=== PATIENT | male | born 1980 | race African-American/Black ===

== ENCOUNTER 2020-12-08 19:22 | Emergency (ER) | payer OTHER, MEDICAID, SELFPAY ==
--- NOTE | 2020-12-08 19:29 | ED.MALEGU ---
HPI - Male Genitourinary General Chief complaint: Urogenital-Male Stated complaint: uti Time Seen by Provider: 12/08/20 19:38 Source: patient and RN notes reviewed Mode of arrival: ambulatory Limitations: no limitations History of Present Illness HPI Narrative: 40-year-old male presents with concern for urine urgency and frequency. He denies dysuria, hematuria. Reports right flank pain. Denies nausea, vomiting, diarrhea, fever, body aches, chills, sweats. Denies abnormal penile discharge. Reports symptoms started 1 week ago. MD Complaint: dysuria Related Data Allergies Allergy/AdvReac Type Severity Reaction Status Date / Time No Known Allergies Allergy Verified 12/08/20 19:44 Review of Systems Review of Systems: CONSTITUTIONAL: Denies malaise, chills, sweats, or fever. CARDIOVASCULAR: Denies chest pain, palpitations, or edema. RESPIRATORY: Denies cough or dyspnea. GASTROINTESTINAL: Denies abdominal pain, nausea, vomiting, diarrhea, bloody, or mucous stools. GENITOURINARY: Denies dysuria or hematuria. Reports urine urgency and frequency. Denies penile discharge SKIN: Denies lesions, rash or itching. MUSCULOSKELETAL: Reports right flank pain. Denies myalgia. All systems reviewed & are unremarkable except as noted in HPI and below PMFSH Comments At time of signature, agree with nursing past medical, surgical, social and family history. There is no relevant family history pertinent to the presenting complaint Exam Narrative: GENERAL: Well-appearing, well-nourished, and in no acute distress. HEAD: Normocephalic. EYES: PERRLA, conjunctivae clear. NECK: Supple. No lymphadenopathy CHEST: Clear to auscultation. No respiratory distress. HEART: Regular rate and rhythm. ABDOMEN: Soft, nontender upon palpation, nondistended, normal active bowel sounds, no palpable or pulsatile masses, no guarding. No CVA tenderness SKIN: Warm, dry, no rash. NEURO: Alert and oriented x3. PSYCH: Normal mood and affect Course Course Emergency Course: Patient is aware of diagnosis, understands and agrees to treatment plan. Anticipatory guidance given. Patient agrees to follow-up as directed and is aware of reasons to seek care at the emergency department. Portions of this record may have been created with voice recognition software Vital Signs Vital signs: Reviewed. MDM - Male Genitourinary MDM Narrative Medical decision making narrative: Exam findings and UA show no acute concerns or changes; patient is non-toxic appearing and is in no distress. Patient is appropriate for outpatient treatment and follow-up. Differential Diagnosis Differential diagnosis: Likely urinary tract infection, urethritis, prostatitis and acute retention of urine Critical Care Time Critical Care Time Critical Care Time: No Discharge Plan Discharge Clinical Impression: Urinary tract infection Qualifiers: Urinary tract infection type: site unspecified Hematuria presence: with hematuria Qualified Code(s): N39.0 - Urinary tract infection, site not specified Patient Disposition: Home, Self-Care Condition: Stable Instructions: Antibiotic Form, Urinary Tract Infection in Men (ED) Additional Instructions: We will send a urine culture to the lab; if the culture identifies an organism that the prescribed antibiotic will not treat, you will receive a phone call from an urgent care staff member and an appropriate antibiotic will be prescribed. -Your symptoms should begin to improve within a day of starting antibiotics. But you should finish all the antibiotic pills you get. Otherwise your infection might come back. -Also recommend: increase water intake. Tylenol/ibuprofen as needed for pain or fever -Follow-up with your primary care provider for urine recheck or seek ER visit if condition worsens with high fever, nausea, vomiting and severe back pain. Your blood pressure was elevated above 120/80 today at [facility]. This puts you above the threshold for follow
--- NOTE | 2020-12-08 19:35 | PC.NURSE ---
in br to obtain ua spec.
[2020-12-08 19:36] VITALS: BP 150/95; PULSE 72; RESP 16; TEMP 36.5; O2SAT 99
== END 2020-12-08 19:50 | disposition home or self-care (01) ==
PROVIDERS: Emergency Provider Nurse Practitioner
DX: N39.0 Urinary tract infection, site not specified (principal)
CPT/HCPCS: 81003; 87077; 87086; 87088; 87186; 99213; G0463